=== PATIENT | female | born 1985 | race Caucasian/White ===

== ENCOUNTER 2017-05-02 22:40 | Emergency (ER) | payer MEDICAID, SELFPAY | END 2017-05-03 02:05 | disposition home or self-care (01) | PROVIDERS: Emergency Provider Emergency Medicine; Visit Provider Emergency Medicine | DX: K59.00 Constipation, unspecified; R10.10 Upper abdominal pain, unspecified | CPT/HCPCS: 74177; 80053; 82150; 83690; 85025; 96365; 96375; 99284; J2405; Q9967 ==